=== PATIENT | male | born 1985 | race Caucasian/White ===

== ENCOUNTER 2019-10-28 09:21 | Emergency (ER) | payer SELFPAY ==
[~2019-10-28] VITALS: Ht 185.4 cm; Wt 81.6 kg
[2019-10-28 09:28] VITALS: BP 145/94
== END 2019-10-28 09:52 | disposition home or self-care (01) ==
LOC: ER 09:22
DX: R00.2 Palpitations (principal); R00.0 Tachycardia, unspecified; F41.9 Anxiety disorder, unspecified; F14.10 Cocaine abuse, uncomplicated

== ENCOUNTER 2021-11-26 13:47 | Emergency (ER) | payer OTHER ==
[~2021-11-26] VITALS: Ht 185.4 cm; Wt 83.9 kg
--- NOTE | 2021-11-26 14:05 | NUR ---
BIB SELF C/O LLQ ABDOMINAL PAIN RADIATES TO LEFT TESTICLE STARTED TODAY. RATES PAIN /10. WILL CONTINUE TO MONITOR THE PATIENT.
--- NOTE | 2021-11-26 14:24 | NUR ---
URINE COLLECTED AND SENT TO THE LAB
[2021-11-26] MEDS ORDERED: KETOROLAC TROMETHAMINE INJ 30 MG/ML VIAL ONE (15:21)
--- NOTE | 2021-11-26 15:26 | NUR ---
Patient discharged to home in stable condition. Written and verbal after care instructions given. Patient verbalizes understanding of instruction.
[2021-11-26 15:29] VITALS: BP 120/63
[2021-11-26] MEDS ORDERED: KETOROLAC TROMETHAMINE INJ 30 MG/ML VIAL IM ONE (15:30)
== END 2021-11-26 15:29 | disposition home or self-care (01) ==
LOC: ER 13:49
DX: K40.90 Unilateral inguinal hernia, without obstruction or gangrene, not specified as recurrent (principal); Z60.2 Problems related to living alone
CPT/HCPCS: 96372; 99283; J1885